=== PATIENT | female | born 2000 | race Caucasian/White ===

== ENCOUNTER 2020-12-09 19:46 | Emergency (ER) | payer BC, SELFPAY ==
[2020-12-09 20:19] LABS: Urine Blood 2+ (Negative); Urine Glucose Negative (Negative); Urine Protein Negative (Negative); Urine Specific Gravity 1.015 (1.005-1.030)
[2020-12-09 20:58] LABS: Urine Specific Gravity/Preg 1.015 (1.005-1.030)
[2020-12-09 23:20] LABS: Absolute Lymphocytes (CBC) 3.6 K/uL (0.7-4.9); Basophils % 0.7 % (0-1.3); Hematocrit 45.6 % (36.0-45.0); Lymphocytes % 31.3 % (15.3-44.8); MPV 8.9 fL (7.6-11.3); RBC Red Blood Cell Count 5.34 M/uL (3.86-4.86)
[2020-12-09 23:39] LABS: ALT/SGPT 25 U/L (12-78); AST/SGOT 18 U/L (15-37); Albumin 3.9 g/dL (3.4-5.0); Alkaline Phosphatase 94 U/L (45-117); BUN Blood Urea Nitrogen 11 mg/dL (7-18); Bicarbonate 26 mmol/L (21-32); Bilirubin Direct 0.1 mg/dL (0-0.2); Bilirubin Total 0.4 mg/dL (0.2-1.0); Glucose Level 110 mg/dL (74-106); Lipase 67 U/L (73-393); Potassium 3.6 mmol/L (3.5-5.1); Protein, Total 7.6 g/dL (6.4-8.2); Sodium Level 142 mmol/L (136-145)
--- NOTE | 2020-12-10 00:29 | EDPHYS ---
Physician Documentation [facility] Name: Sierra Jarquin Age: 20 yrs Sex: Female : 2000 Arrival Date: 12/09/2020 Time: 19:52 Bed 13 Private MD: ED Physician Garret Zapata HPI: 12/09 23:06 This 20 yrs old Female presents to ER via Ambulatory with complaints of pkl Abdominal Cramping. 23:06 The patient presents with abdominal pain in the lower abdomen. Onset: The pkl symptoms/episode began/occurred 4 day(s) ago. The symptoms do not radiate. Associated signs and symptoms: Pertinent positives: nausea. Historical: - Allergies: 20:03 No Known Allergies; kg - Home Meds: 20:03 None [Active]; kg - PMHx: 20:03 None; kg - PSHx: 20:03 IUD; Tonsillectomy; kg - Immunization history:: Adult Immunizations up to date, Client reports receiving the 2nd dose of the Covid vaccine, Date received: November 2020 Client reports receiving the 1st dose of the Covid vaccine, October 2020. - Social history:: Smoking status: Reported history of juuling and/or vaping. Patient uses street drugs, marijuana. ROS: 23:06 Eyes: Negative for injury, pain, redness, and discharge, ENT: Negative for injury, pkl pain, and discharge, Neck: Negative for injury, pain, and swelling, Cardiovascular: Negative for chest pain, palpitations, and edema, Respiratory: Negative for shortness of breath, cough, wheezing, and pleuritic chest pain. 23:06 Abdomen/GI: Positive for abdominal pain, nausea, of the right lower quadrant and left lower quadrant. 23:06 Back: Negative for acute changes. 23:06 : Negative for urinary symptoms. 23:06 MS/extremity: Negative for acute changes. 23:06 Skin: Negative for rash. 23:06 Neuro: Negative for altered mental status, loss of consciousness. Exam: 23:06 Head/Face: Normocephalic, atraumatic. Eyes: Pupils equal round and reactive to light, pkl extra-ocular motions intact. Lids and lashes normal. Conjunctiva and sclera are non-icteric and not injected. Cornea within normal limits. Periorbital areas with no swelling, redness, or edema. ENT: Nares patent. No nasal discharge, no septal abnormalities noted. Tympanic membranes are normal and external auditory canals are clear. Oropharynx with no redness, swelling, or masses, exudates, or evidence of obstruction, uvula midline. Mucous membranes moist. Neck: Trachea midline, no thyromegaly or masses palpated, and no cervical lymphadenopathy. Supple, full range of motion without nuchal rigidity, or vertebral point tenderness. No Meningismus. Chest/axilla: Normal chest wall appearance and motion. Nontender with no deformity. No lesions are appreciated. Cardiovascular: Regular rate and rhythm with a normal S1 and S2. No gallops, murmurs, or rubs. Normal PMI, no JVD. No pulse deficits. Respiratory: Lungs have equal breath sounds bilaterally, clear to auscultation and percussion. No rales, rhonchi or wheezes noted. No increased work of breathing, no retractions or nasal flaring. 23:06 Abdomen/GI: Bowel sounds: normal, Palpation: soft, mild abdominal tenderness, in the right lower quadrant and left lower quadrant. 23:06 Back: Exam negative for acute changes. 23:06 : Exam negative for acute changes. 23:06 Musculoskeletal/extremity: Exam is negative for acute changes. 23:06 Skin: Exam negative for rash. 23:06 Neuro: Orientation: is normal, Mentation: is normal, Cranial nerves: grossly normal, Motor: is normal. Vital Signs: 20:02 BP 133 / 88; Pulse 86; Resp 18; Temp 98.5(O); Pulse Ox 100% ; Weight 83.91 kg (R); kg Height 5 ft. 2 in. (157.48 cm) (R); Pain 6/10; 12/10 00:49 BP 129 / 87; Pulse 97; Resp 16 S; Temp 99.4(O); Pulse Ox 98% on R/A; bb 12/09 20:02 Body Mass Index 33.84 (83.91 kg, 157.48 cm) kg MDM: 12/09 23:00 Patient medically screened. pkl 12/10 00:21 Data reviewed: vital signs, nurses notes, lab test result(s), radiologic studies, CT pkl scan. ED course: Discussed lab and CT Scan results with patient. Advised to follow up with PCP in 2 to 3 days return if necessary. Patient understood instructions. 12/09 20:19 Order name: Urine Dipstick-Ancillary EDMS 12/09 20:35 Order name: Urine --Ancillary (enter results); Complete Time: 22:54 tt3 12/09 22:59 Order name: Basic Metabolic Panel; Complete Time: 00:15 kg 08 22:59 Order name: CBC with Diff; Complete Time: 00:15 kg 12/09 22:59 Order name: Hepatic Function; Complete Time: 00:15 kg 08 22:59 Order name: Lipase; Complete Time: 00:15 kg 08 22:59 Order name: IV Saline Lock; Complete Time: 23:30 kg 08 22:59 Order name: Labs collected and sent; Complete Time: 23:30 kg 12/09 23:06 Order name: Creatine Phosphokinase; Complete Time: 00:15 pkl 12/09 23:06 Order name: CT Abd/Pelvis - IV Contrast Only pkl Administered Medications: 00:45 Drug: Cipro (ciprofloxacin) 500 mg Route: PO; bb 00:45 Follow up: Response: Medication administered at discharge. bb 00:45 Drug: Ondansetron 4 mg Route: PO; bb 00:45 Follow up: Response: Medication administered at discharge. bb 00:46 CANCELLED (Physician Discretion): NS 0.9% 1000 ml IV at 1000 ml once bb Disposition Summary: 12/10/20 00:29 Discharge Ordered Location: Home pkl Problem: new pkl Symptoms: are unchanged pkl Condition: Stable pkl Diagnosis - Abdominal pain pkl Followup: pkl - With: Private Physician - When: 2 - 3 days - Reason: Re-evaluation by your physician Discharge Instructions: - Discharge Summary Sheet pkl Forms: - Medication Reconciliation Form pkl - Thank You Letter pkl - Antibiotic Education pkl - Prescription Opioid Use pkl Prescriptions: - Zofran 4 mg Oral Tablet - take 1 tablet by ORAL route every 12 hours As needed; 6 tablet; Refills: 0, pkl Product Selection Permitted - Cipro 500 mg Oral Tablet - take 1 tablet by ORAL route every 12 hours for 5 days; 10 tablet; Refills: 0, pkl Product Selection Permitted Signatures: Dis[facility] Garret Zapata MD MD pkl Renée Blum RN RN Latasha Langley RN RN kg Corrections: (The following items were deleted from the chart) 12/09 20:05 20:03 PSHx: None; kg kg 12/10 00:46 12/09 23:06 NS 0.9% 1000 ml IV at 1000 ml once ordered. pkberenice hager
--- NOTE | 2020-12-10 00:29 | ER ---
Nurse's Notes [facility] Name: Sierra Jarquin Age: 20 yrs Sex: Female : 2000 Arrival Date: 12/09/2020 Time: 19:52 Bed 13 Private MD: Diagnosis: Abdominal pain Presentation: 12/09 20:02 Chief complaint: Patient states: Abdominal pain and nausea x 4 days. Coronavirus kg screen: Client denies travel out of the [place] in the last 14 days. At this time, unable to obtain information related to travel outside the [place] At this time, the client does not indicate any symptoms associated with coronavirus-19. Ebola Screen: Patient negative for fever greater than or equal to 101.5 degrees Fahrenheit, and additional compatible Ebola Virus Disease symptoms Patient denies exposure to infectious person. Patient denies travel to an Ebola-affected area in the 21 days before illness onset. Initial Sepsis Screen: Does the patient meet any 2 criteria? No. Patient's initial sepsis screen is negative. Does the patient have a suspected source of infection? No. Patient's initial sepsis screen is negative. Risk Assessment: Do you want to hurt yourself or someone else? Patient reports no desire to harm self or others. Onset of symptoms was December 05, 2020. 20:02 Method Of Arrival: Ambulatory kg 20:02 Acuity: TONE 3 kg Triage Assessment: 20:03 General: Appears in no apparent distress. Behavior is calm, cooperative, appropriate kg for age, quiet. Pain: Complains of pain in suprapubic area Pain radiates to right lower quadrant and left lower quadrant Pain currently is 6 out of 10 on a pain scale. at worst was 9 out of 10 on a pain scale. level that patient reports is acceptable is 3 out of 10 on a pain scale. Quality of pain is described as crampy, sharp, stabbing, Pain began 2-3 days ago. GI: Reports nausea. Historical: - Allergies: 20:03 No Known Allergies; kg - Home Meds: 20:03 None [Active]; kg - PMHx: 20:03 None; kg - PSHx: 20:03 IUD; Tonsillectomy; kg - Immunization history:: Adult Immunizations up to date, Client reports receiving the 2nd dose of the Covid vaccine, Date received: November 2020 [place] Client reports receiving the 1st dose of the Covid vaccine, October 2020 [facility]. - Social history:: Smoking status: Reported history of juuling and/or vaping. Patient uses street drugs, marijuana. Screenin:06 Abuse screen: Denies threats or abuse. Denies injuries from another. Nutritional kg screening: No deficits noted. Tuberculosis screening: No symptoms or risk factors identified. Fall Risk None identified. Assessment: 12/10 00:46 General: Appears in no apparent distress. Behavior is calm, cooperative, pt seen by madan navas RN on discharge. Pt verbalized understanding of and agrees to plan of care discharge instructions given pt ambulated with steady gait to exit accompanied by family. Vital Signs: 12/09 20:02 BP 133 / 88; Pulse 86; Resp 18; Temp 98.5(O); Pulse Ox 100% ; Weight 83.91 kg (R); kg Height 5 ft. 2 in. (157.48 cm) (R); Pain 6/10; 12/10 00:49 BP 129 / 87; Pulse 97; Resp 16 S; Temp 99.4(O); Pulse Ox 98% on R/A; bb 12/09 20:02 Body Mass Index 33.84 (83.91 kg, 157.48 cm) kg ED Course: 12/09 19:52 Patient arrived in ED. as 20:03 Triage completed. kg 20:06 Patient has correct armband on for positive identification. kg 20:06 No provider procedures requiring assistance completed. kg 23:00 Garret Zapata MD is Attending Physician. pkl 23:56 CT Abd/Pelvis - IV Contrast Only In Process Unspecified. EDMS Administered Medications: 12/10 00:45 Drug: Cipro (ciprofloxacin) 500 mg Route: PO; bb 00:45 Follow up: Response: Medication administered at discharge. bb 00:45 Drug: Ondansetron 4 mg Route: PO; bb 00:45 Follow up: Response: Medication administered at discharge. bb 00:46 CANCELLED (Physician Discretion): NS 0.9% 1000 ml IV at 1000 ml once bb Outcome: 00:29 Discharge ordered by . pkl 00:48 Discharged to home ambulatory, with family. bb 00:48 Condition: stable 00:48 Discharge instructions given to patient, Instructed on discharge instructions, follow up and referral plans. medication usage, Demonstrated understanding of instructions, follow-up care, medications, Prescriptions given X 2. 00:49 Patient left the ED. bb Signatures: Dispatcher [employer] EDGarret Hager MD MD pkl Martinez, Amelia as Ballard, Brenda, RN RN Latasha Langley RN RN kg Corrections: (The following items were deleted from the chart) 12/09 20:05 20:03 PSHx: None; kg kg
[2020-12-10] MEDS ORDERED: CIPROFLOXACIN HCL 500 MG TAB ONE (00:58)
[2020-12-10] MEDS ORDERED: ONDANSETRON 4 MG (ODT) TAB ONE (00:58)
[2020-12-10 01:06] VITALS: BP 129/87; TEMP 99.4; O2SAT 98
--- NOTE | 2020-12-11 11:52 | RAD REPORT ---
EXAM DESCRIPTION: CT - Abdomen Pelvis W Contrast - 12/10/2020 7:08 am CLINICAL HISTORY: ABD PAIN COMPARISON: None Available. TECHNIQUE: CT of the abdomen and pelvis performed following IV administration of iodinated contras t.. This exam was performed according to our departmental dose-optimization program, which includes a utomated exposure control, adjustment of the mA and/or kV according to patient size and/or use of ite rative reconstruction technique. FINDINGS: Lung Bases: The visualized lung bases are clear. Bones: No destructive bone lesions identified. Abdomen: Liver: The liver has normal size and density. No intrahepatic biliary dilatation. Gallbladder: No calcified gallstones. Spleen, Pancreas, and Adrenal Glands: The spleen, pancreas, and adrenal glands are unremarkable. Kidneys: No hydronephrosis or obstructing calculus. Vasculature: The aorta and IVC have normal caliber and position. The portal vein is patent. The pro ximal visceral and renal arteries are patent. Stomach: The stomach and duodenum have normal course. Other: No free intraperitoneal air. No free fluid or lymphadenopathy. Tiny fat-containing umbilic al hernia. Pelvis: Bladder: Urinary bladder is unremarkable. Bowel: No dilated loops of large or small bowel. Appendix: Normal appendix. Pelvis: IUD in the uterus. IMPRESSION: 1. No acute inflammatory or obstructive process identified. Electronically signed by: Juan Manuel Stephenson 12/10/2020 12:10 AM CDT Due to temporary technical issues with the PACS/Fluency reporting system, reports are being signed by the in house radiologist without review as a courtesy to ensure prompt reporting. The interpreting r adiologist is fully responsible for the content of the report.
== END 2020-12-10 00:49 | disposition home or self-care (01) ==
LOC: ER 19:46
DX: R10.30 Lower abdominal pain, unspecified (principal)
CPT/HCPCS: 36415; 74177; 80048; 80076; 81003; 81025; 82550; 82565; 83690; 85025; 99283; Q9967